=== PATIENT | female | born 1950 | race Native Hawaiian/Other Pacific Islander ===

== ENCOUNTER 2017-04-27 14:07 | Emergency (ER) | payer MEDICAID ==
[2017-04-27 14:08] VITALS: BMI 26.9
[2017-04-27 14:34] VITALS: TEMP 98.4
--- NOTE | 2017-04-27 15:09 | ED PDOC ---
Arrival/HPI - General Historian: Patient - History of Present Illness Time/Duration: 1 week Quality: Tightness Context: Home - General Chief Complaint: Chest Pain Time Seen by Provider: 04/27/17 15:02 - History of Present Illness Narrative History of Present Illness (Text): 04/27/17 15:05 This 66 yo female with pmh htn, psoriasis, presents to this ED c/o intermittent left sides, left arm, and left anterior chest pain x 7 days. Patient described chest pain as "heaviness". Patient stated father dies from aortic aneurysm. Patient is borderline DM, in no medication yet. Patient denies abdominal pain, sob, cough, rash, fever, sick contact, tobacco use, or abnormal gait. Patient noted she return from a month vacation in [facility] x 3 weeks ago. Denies leg swelling, or calf pain. No PMD (Manny Alexis) Past Medical History - Provider Review Nursing Documentation Reviewed: Yes - Cardiac Hx Hypertension: Yes - Pulmonary Hx Respiratory Disorders: No - Neurological Hx Neurological Disorder: No - HEENT Hx HEENT Disorder: Yes (itchy throat x1 yr) - Renal Hx Renal Disorder: No - Endocrine/Metabolic Hx Endocrine Disorders: No - Hematological/Oncological Hx Blood Disorders: No - Integumentary Hx Psoriasis: Yes - Musculoskeletal/Rheumatological Hx Falls: No Hx Gout: Yes (left foot) - Gastrointestinal Hx Gastrointestinal Disorders: Yes (umbilical hernia no sx) - Genitourinary/Gynecological Hx Genitourinary Disorders: No - Psychiatric Hx Psychophysiologic Disorder: No Hx Substance Use: No - Surgical History Hx Cholecystectomy: Yes - Anesthesia Hx Anesthesia: No Hx Anesthesia Reactions: No Hx Malignant Hyperthermia: No Family/Social History - Physician Review Nursing Documentation Reviewed: Yes Family/Social History: No Known Family HX Smoking Status: Never Smoked Hx Alcohol Use: No Hx Substance Use: No Allergies/Home Meds Allergies/Adverse Reactions: Allergies No Known Allergies Allergy (Verified 04/27/17 14:26) Home Medications: Home Meds Medication Instructions Recorded Confirmed Methotrexate 2.5 mg PO QWK 11/16/16 04/27/17 Lisinopril [Zestril] 10 mg PO DAILY 04/27/17 04/27/17 Review of Systems - Review of Systems Constitutional: Normal. absent: Fatigue, Weight Change, Fevers, Night Sweats Eyes: Normal ENT: Normal Respiratory: Normal Cardiovascular: Chest Pain. absent: Palpitations, Edema, Calf Pain, QUINTEROS, Orthopnea, Syncope Gastrointestinal: Normal. absent: Abdominal Pain, Nausea, Vomiting, Anorexia Genitourinary Female: Normal Musculoskeletal: Other (See HPI) Skin: Normal Neurological: Normal Endocrine: Normal Hemo/Lymphatic: Normal Psychiatric: Normal Physical Exam Temperature: Afebrile Blood Pressure: Normal Pulse: Regular Respiratory Rate: Normal Appearance: Positive for: Well-Appearing, Non-Toxic, Comfortable Pain Distress: None Mental Status: Positive for: Alert and Oriented X 3 - Systems Exam Head: Present: Atraumatic, Normocephalic Pupils: Present: PERRL Extroacular Muscles: Present: EOMI Conjunctiva: Present: Normal Ears: Present: Normal, NORMAL TM, Normal Canal. No: Erythema, TM Bulging Mouth: Present: Moist Mucous Membranes Neck: Present: Normal Range of Motion, Trachea Midline. No: Meningeal Signs, MIDLINE TENDERNESS, Paraspinal Tenderness, Bruit Respiratory/Chest: Present: Clear to Auscultation, Good Air Exchange. No: Respiratory Distress, Accessory Muscle Use, Wheezes, Retracting, Rhonchi Cardiovascular: Present: Regular Rate and Rhythm, Normal S1, S2. No: Murmurs Abdomen: Present: Normal Bowel Sounds. No: Tenderness, Distention, Peritoneal Signs, Rebound, Guarding Back: Present: Normal Inspection. No: CVA Tenderness Upper Extremity: Present: Normal Inspection, Normal ROM, NORMAL PULSES, Neurovascularly Intact, Capillary Refill < 2s. No: Cyanosis, Edema Lower Extremity: Present: Normal Inspection, NORMAL PULSES, Normal ROM, Neurovascularly Intact, Capillary Refill < 2 s. No: Edema, CALF TENDERNESS Neurological: Present: GCS=15, CN II-XII Intact, Speech Normal, Motor Func Grossly Intact, Normal Sensory Function, Normal Cerebellar Funct, Gait Normal Skin: Present: Warm, Dry, Normal Color. No: Rashes Psychiatric: Present: Alert, Oriented x 3, Normal Insight, Normal Concentration Vital Signs Temp Pulse Resp BP Pulse Ox 04/27/17 18:45 58 L 18 145/93 H 99 04/27/17 15:57 55 L 18 140/75 99 04/27/17 14:28 98.4 F 64 16 103/71 96 Medical Decision Making Re-evaluation Time: 18:17 Reassessment Condition: Re-examined, Improved - Lab Interpretations I have reviewed the lab results: Yes Interpretation: No clinic. lab abnormalty - EKG Interpretation Interpreted by ED Physician: Yes (Sinus Bradycardia @56 bpm. Normal interval. No ST changes) Type: 12 lead EKG Comparison: No previous EKG avail. ED Course and Treatment: I was available for consultation during PA evaluation. The chart was reviewed by me, and I agree with disposition. The documented history was done by the physician lead software test engineer. The documented physical exam was done by the physician lead software test engineer. The documented procedures were done by the physician lead software test engineer. ( John Paul Rivera) 04/27/17 20:17 I spoke with house physician Haim regarding patient symptoms. He believes b/l infiltrates seen on CT chest, could secondary to Methotrexate. He recommends to start patient on Levaquin, and to have patient f/u pmd, and truck spotter. ( Manny Alexis) - Lab Interpretations Lab Results: 04/27/17 15:05 04/27/17 15:05 Lab Results 04/27/17 15:05: Sodium 139, Potassium 4.5, Chloride 106, Carbon Dioxide 27, Anion Gap 11, BUN 23 H, Creatinine 1.0, Est GFR ( Amer) > 60, Est GFR ( Non-Af Amer) 56, Random Glucose 90, Calcium 9.2, Magnesium 2.0, Total Bilirubin 0.8, AST 23, ALT 29, Alkaline Phosphatase 96, Lactate Dehydrogenase 385, Total Creatine Kinase 26 L, Troponin I < 0.01, NT-Pro-B Natriuret Pep 30.2, Total Protein 7.3, Albumin 3.8, Globulin 3.5, Albumin/Globulin Ratio 1.1 04/27/17 15:05: PT 10.8, INR 1.00, APTT 26.4, D-Dimer, Quantitative 0.57 H 04/27/17 15:05: WBC 7.2 D, RBC 4.90, Hgb 14.8, Hct 44.0, MCV 89.8, MCH 30.2, MCHC 33.6, RDW 14.7 H, Plt Count 227, MPV 9.7, Gran % 53.9, Lymph % (Auto) 30.6 , [place] % (Auto) 12.2 H, Eos % (Auto) 2.7, Baso % (Auto) 0.6, Gran # 3.86, Lymph # 2.2, [place] # 0.9 H, Eos # 0.2, Baso # 0.04 04/27/17 14:54: Urine Color Yellow, Urine Appearance Clear, Urine pH 6.0, Ur Specific [place] 1.020, Urine Protein Negative, Urine Glucose (UA) Negative, Urine Ketones Negative, Urine Blood Trace-intact H, Urine Nitrate Negative, Urine Bilirubin Negative, Urine Urobilinogen 0.2, Ur Leukocyte Esterase Small H , Urine RBC 1 - 3, Urine WBC 2 - 5, Ur Epithelial Cells 4 - 5, Urine Bacteria Few, Urine HCG, Qual Negative - RAD Interpretation Narrative RAD Interpretations (Text): 04/27/17 18:17 ccession No. : [id number] Patient Name / ID : ISSA CARRASCO / [id number] Exam Date : 04/27/2017 17:13:29 ( Approved ) Study Comment : Sex / Age : F / [id number] Creator : Harshad Fry MD Dictator : Harshad Fry MD Electrical Estimator : Engineering Leader : Harshad Fry MD Approver2 : Report Date : 04/27/2017 17:59:24 My Comment : PROCEDURE: CT Chest with contrast (Pulmonary Angiogram) HISTORY: chest pain , elevated D-dimer COMPARISON: None available. TECHNIQUE: Axial computed tomography images were obtained of the chest in the pulmonary arterial phase of enhancement. Coronal and sagittal reformatted images were created and reviewed. Maximum intensity projection (MIP) reconstructed images in the following planes : Coronal projection only. Intravenous contrast dose: 147 cc Omnipaque 350 Mean Hounsfield unit values in the main pulmonary artery: 479.71 Radiation dose: Total exam DLP = 464.24 mGy-cm. This CT exam was performed using one or more of the following dose reduction techniques: Automated exposure control, adjustment of the mA and/or kV according to patient size, and/or use of iterative reconstruction technique. FINDINGS: PULMONARY ARTERIES: Unremarkable. No pulmonary embolism. AORTA: No acute findings. No thoracic aortic aneurysm. LUNGS: Faint multifocal infiltrates involving right upper lobe, right lower lobe, left upper lobe and left lower lobe. PLEURAL SPACES: Unremarkable. No effusion or pneuomothorax. HEART: Unremarkable. No cardiomegaly. No significant pericardial effusion. LYMPH NODES: No lymphadenopathy. BONES, CHEST WALL: Unremarkable. No fracture or destructive lesion OTHER FINDINGS: Unremarkable. IMPRESSION: Unremarkable CT pulmonary angiogram. No pulmonary embolus. Multiple bilateral subsegmental alveolar infiltrates. (Manny Alexis) Radiology Orders: 04/27/17 15:02 CHEST PORTABLE [RAD] Stat 04/27/17 16:13 ANGIO CHEST PE PROTOCOL [CT] Stat - Medication Orders Current Medication Orders: Discontinued Medications Acetaminophen (Tylenol 325mg Tab) 650 mg PO Q6H PRN PRN Reason: Fever >100.4 F Albuterol Sulfate (Albuterol 0.083% Inhal Jennifer (2.5 Mg/3 Ml) Ud) 2.5 mg IH Q2H PRN PRN Reason: Shortness of Breath Aspirin (Aspirin) 325 mg PO STAT STA Stop: 04/27/17 15:03 Last Admin: 04/27/17 15:16 Dose: 325 mg Famotidine (Pepcid) 20 mg PO BID LIZA Levofloxacin/Dextrose (Levaquin 750mg) 750 mg in 150 mls @ 100 mls/hr IVPB STAT STA Stop: 04/27/17 18:24 Last Admin: 04/27/17 18:04 Dose: Ceftriaxone Sodium (Rocephin 1 Gram Ivpb) 1 gm in 100 mls @ 200 mls/hr IVPB STAT STA PRN Reason: Protocol Stop: 04/27/17 18:53 Last Admin: 04/27/17 18:53 Dose: 200 mls/hr Azithromycin (Zithromax 500mg In Ns) 500 mg in 250 mls @ 167 mls/hr IVPB STAT STA PRN Reason: Protocol Stop: 04/27/17 19:54 Last Admin: 04/27/17 19:32 Dose: 167 mls/hr Ibuprofen (Motrin Tab) 600 mg PO Q6H PRN PRN Reason: Pain, Mild (1-3) Iohexol (Omnipaque 350 150 Ml) Confirm Administered Dose 150 ml .ROUTE .STK-MED ONE Stop: 04/27/17 16:55 Lisinopril (Zestril) 10 mg PO DAILY LIZA Methotrexate (Methotrexate) 2.5 mg PO QWK LIZA Disposition/Present on Arrival - Present on Arrival Any Indicators Present on Arrival: No History of DVT/PE: No History of Uncontrolled Diabetes: No Urinary Catheter: No History of Decub. Ulcer: No History Surgical Site Infection Following: None - Disposition Have Diagnosis and Disposition been Completed?: Yes Disposition Time: 20:20 Patient Plan: Discharge - Disposition Diagnosis: Bilateral pneumonia Disposition: HOME/ ROUTINE Patient Problems: Current Active Problems Problem Status Onset Bilateral pneumonia Acute Condition: GOOD Discharge Instructions (ExitCare): Pneumonia (ED) Additional Instructions: Call private doctor for follow up visit in 1-2 days. Call Head Cager for follow up visit in 2-3 days for revaluation. take medication as instructed. Return to emergency if symptoms worsen. Prescriptions: Levofloxacin [Levaquin] 750 mg PO DAILY #5 tablet Referrals: Dawit Keyes MD [Staff Provider] - Follow up with primary [facility] [Outside] - Follow up with primary [facility] [Outside] - Follow up with primary
[2017-04-27 15:15] LABS: ADD MANUAL DIFF? NO
[2017-04-27 15:19] LABS: BASO # 0.04 K/mm3 (0.0-2.0); BASO % 0.6 % (0.0-3.0); EOS # 0.2 (0.0-0.7); EOS % 2.7 % (1.5-5.0); GRAN # 3.86 (1.4-6.5); GRAN % 53.9 % (50.0-68.0); LYMPH # 2.2 (1.2-3.4); LYMPH % 30.6 % (22.0-35.0); MEAN CELL VOLUME 89.8 fL (80.0-105.0); MEAN CORPUSCULAR HEMOGLOBIN 30.2 pg (25.0-35.0); MEAN CORPUSCULAR HGB CONC 33.6 g/dl (31.0-37.0); MEAN PLATELET VOLUME 9.7 fl (7.0-11.0); MONO # 0.9 (0.1-0.6); MONO % 12.2 % (1.0-6.0); PLATELET COUNT 227 10^3/uL (120.0-450.0); RED CELL DISTRIBUTION WIDTH 14.7 % (11.5-14.5); WHITE BLOOD COUNT 7.2 10^3/ul (4.5-11.0)
[2017-04-27 15:28] LABS: ALB/GLOB RATIO 1.1 (1.1-1.8); ALKALINE PHOSPHATASE 96 U/L (38-133); ALT/SGPT 29 U/L (7-56); AST/SGOT 23 U/L (15-39); BILIRUBIN,TOTAL 0.8 mg/dL (0.2-1.3); BLOOD UREA NITROGEN 23 mg/dL (7-21); CALCIUM 9.2 mg/dL (8.4-10.5); CARBON DIOXIDE 27 mmol/L (21-33); CHLORIDE 106 mmol/L (98-107); GFR AFRICAN-AMERICAN > 60; GLUCOSE,RANDOM 90 mg/dL (70-110); PARTIAL THROMBOPLASTIN TIME 26.4 Seconds (23.7-30.8); POTASSIUM 4.5 mmol/L (3.6-5.0); SODIUM 139 mmol/L (132-148); TOTAL PROTEIN 7.3 g/dL (5.8-8.3)
--- NOTE | 2017-04-27 15:29 | RAD ---
HISTORY: Chest pain COMPARISON: 11/18/2016 FINDINGS: LUNGS: The lungs are well inflated and clear. PLEURA: No significant pleural effusion identified, no pneumothorax apparent. CARDIOVASCULAR: Normal. OSSEOUS STRUCTURES: No significant abnormalities. VISUALIZED UPPER ABDOMEN: Normal. OTHER FINDINGS: None. IMPRESSION: No active pulmonary disease.
[2017-04-27 15:40] LABS: TROPONIN I < 0.01 ng/mL
[2017-04-27 15:57] VITALS: RESP 18; O2SAT 99
[2017-04-27 16:03] LABS: D DIMER 0.57 mg/L FEU (0-0.50)
[2017-04-27 16:14] LABS: URINE BILIRUBIN NEGATIVE (NEGATIVE); URINE BLOOD TRACE-INTACT (NEGATIVE); URINE GLUCOSE (UA) NEGATIVE (NEGATIVE); URINE KETONE NEGATIVE (NEGATIVE); URINE LEUKOCYTE ESTERASE SMALL Leu/uL (NEGATIVE); URINE PROTEIN NEGATIVE mg/dL (<30 mg/dL); URINE UROBILINOGEN 0.2 E.U./dL (<1 E.U./dL)
[2017-04-27 16:18] LABS: URINE APPEARANCE CLEAR (CLEAR); URINE COLOR YELLOW (YELLOW)
[2017-04-27 16:29] LABS: URINE BACTERIA FEW (NEG)
[2017-04-27] MEDS: levoFLOXacin 750 mg in D5W 750 MG/150 ML BAG IVPB STA ×2 (18:00→18:04)
--- NOTE | 2017-04-27 18:01 | CT ---
PROCEDURE: CT Chest with contrast (Pulmonary Angiogram) HISTORY: chest pain , elevated D-dimer COMPARISON: None available. TECHNIQUE: Axial computed tomography images were obtained of the chest in the pulmonary arterial phase of enhancement. Coronal and sagittal reformatted images were created and reviewed. Maximum intensity projection (MIP) reconstructed images in the following planes: Coronal projection only. Intravenous contrast dose: 147 cc Omnipaque 350 Mean Hounsfield unit values in the main pulmonary artery: 479.71 Radiation dose: Total exam DLP = 464.24 mGy-cm. This CT exam was performed using one or more of the following dose reduction techniques: Automated exposure control, adjustment of the mA and/or kV according to patient size, and/or use of iterative reconstruction technique. FINDINGS: PULMONARY ARTERIES: Unremarkable. No pulmonary embolism. AORTA: No acute findings. No thoracic aortic aneurysm. LUNGS: Faint multifocal infiltrates involving right upper lobe, right lower lobe, left upper lobe and left lower lobe. PLEURAL SPACES: Unremarkable. No effusion or pneuomothorax. HEART: Unremarkable. No cardiomegaly. No significant pericardial effusion. LYMPH NODES: No lymphadenopathy. BONES, CHEST WALL: Unremarkable. No fracture or destructive lesion OTHER FINDINGS: Unremarkable. IMPRESSION: Unremarkable CT pulmonary angiogram. No pulmonary embolus. Multiple bilateral subsegmental alveolar infiltrates.
[2017-04-27] MEDS ORDERED: cefTRIAXone 1 gm 1 GM/100 ML BAG IVPB STA (18:24)
[2017-04-27] MEDS ORDERED: Azithromycin 500MG/NS 250ml 500 MG/250 ML BAG IVPB STA (18:25)
[2017-04-27] MEDS ORDERED: Albuterol 0.083% Inhal Sol (2.5 mg/3 mL) UD IH PRN (19:45)
--- NOTE | 2017-04-27 20:27 | CP.PCM.CON ---
<RobbinOziel blair - Last Filed: 04/27/17 20:36> History of Present Illness - History of Present Illness History of Present Illness: CC: Chest discomfort for 7d This is a 66yo F w/ a PMhx of Psoriasis and HTN on MTx therapy for the past 20+ years who is coming to the hospital for a 7d history of chest discomfort. The pain is bilateral, non radiating, not associated with diaphoresis or vomiting. It is associated with minor SOB that does not interfere with any daily activities. She denies fevers, PAUL, abdominal pain, N/V/D, dysuria/freq/urg, or lower extremity pain/swelling, denies depression/anxiety. States she recently traveled to the [facility] for [facility] weeks, which she frequents every year. Denies any sick contacts. Received her flu shot this year as well as the pneumococcal vaccine. Denies night sweats, weight loss, or loss of apetite. Allergies: Denies Surgeries: malcom long 2011 Social: denies EtOH use "I had two sips of red wine once and got drunk and hated it", denies cigarettes, or illicit drugs PMhx: Psoriasis, HTN FamHx: Mom and Dad with HTN and DM, no one with cancer, states is up to date on all of her health main exams and all were normal except for cervical dysplasia in 2011 on her last pap Meds: Methotrexate, Losartan Past Patient History - Past Social History Smoking Status: Never Smoked - CARDIAC Hx Hypertension: Yes - PULMONARY Hx Respiratory Disorders: No - NEUROLOGICAL Hx Neurological Disorder: No - HEENT Hx HEENT Problems: Yes (itchy throat x1 yr) - RENAL Hx Chronic Kidney Disease: No - ENDOCRINE/METABOLIC Hx Endocrine Disorders: No - HEMATOLOGICAL/ONCOLOGICAL Hx Blood Disorders: No - INTEGUMENTARY Hx Psoriasis: Yes - MUSCULOSKELETAL/RHEUMATOLOGICAL Hx Falls: No Hx Gout: Yes (left foot) - GASTROINTESTINAL Hx Gastrointestinal Disorders: Yes (umbilical hernia no sx) - GENITOURINARY/GYNECOLOGICAL Hx Genitourinary Disorders: No - PSYCHIATRIC Hx Psychophysiologic Disorder: No Hx Substance Use: No - SURGICAL HISTORY Hx Cholecystectomy: Yes - ANESTHESIA Hx Anesthesia: No Hx Anesthesia Reactions: No Hx Malignant Hyperthermia: No Meds Home Medications: Home Medication List Medication Instructions Recorded Confirmed Type Levofloxacin [Levaquin] 750 mg PO DAILY #5 tablet 06/15/17 Rx Allergies/Adverse Reactions: Allergies Allergy/AdvReac Type Severity Reaction Status Date / Time No Known Allergies Allergy Verified 04/27/17 14:26 Physical Exam - Constitutional Appears: Well, Non-toxic - Head Exam Head Exam: ATRAUMATIC - Eye Exam Eye Exam: EOMI - ENT Exam ENT Exam: Mucous Membranes Moist - Neck Exam Neck exam: Positive for: Full Rom. Negative for: Lymphadenopathy - Respiratory Exam Respiratory Exam: NORMAL BREATHING PATTERN. absent: Accessory Muscle Use, Chest Wall Tenderness, Decreased Breath Sounds, Clear to Auscultation Bilateral (mild crackles at bases), Rales, Rhonchi, Wheezes, Respiratory Distress, Stridor - Cardiovascular Exam Cardiovascular Exam: REGULAR RHYTHM, +S1, +S2 - GI/Abdominal Exam GI & Abdominal Exam: Normal Bowel Sounds, Soft - Rectal Exam Rectal Exam: Deferred - Extremities Exam Extremities exam: Positive for: full ROM. Negative for: calf tenderness - Back Exam Back exam: NORMAL INSPECTION. absent: CVA tenderness (L), CVA tenderness (R) - Neurological Exam Neurological exam: Alert, Oriented x3 - Psychiatric Exam Psychiatric exam: Normal Affect - Skin Skin Exam: Intact, Warm Results - Vital Signs Recent Vital Signs: Last Vital Signs Temp 98.4 F 04/27/17 14:28 Pulse 58 L 04/27/17 18:45 Resp 18 04/27/17 18:45 BP 145/93 H 04/27/17 18:45 Pulse Ox 99 04/27/17 18:45 - Labs Result Diagrams: 04/27/17 15:05 04/27/17 15:05 Labs: Laboratory Results - last 24 hr 04/27/17 04/27/17 04/27/17 14:54 15:05 15:05 WBC 7.2 D RBC 4.90 Hgb 14.8 Hct 44.0 MCV 89.8 MCH 30.2 MCHC 33.6 RDW 14.7 H Plt Count 227 MPV 9.7 Gran % 53.9 Lymph % (Auto) 30.6 [place] % (Auto) 12.2 H Eos % (Auto) 2.7 Baso % (Auto) 0.6 Gran # 3.86 Lymph # 2.2 [place] # 0.9 H Eos # 0.2 Baso # 0.04 PT 10.8 INR 1.00 APTT 26.4 D-Dimer, Quantitative 0.57 H Sodium Potassium Chloride Carbon Dioxide Anion Gap BUN Creatinine Est GFR ( Amer) Est GFR (Non-Af Amer) Random Glucose Calcium Magnesium Total Bilirubin AST ALT Alkaline Phosphatase Lactate Dehydrogenase Total Creatine Kinase Troponin I NT-Pro-B Natriuret Pep Total Protein Albumin Globulin Albumin/Globulin Ratio Urine Color Yellow Urine Appearance Clear Urine pH 6.0 Ur Specific [place] 1.020 Urine Protein Negative Urine Glucose (UA) Negative Urine Ketones Negative Urine Blood Trace-intact H Urine Nitrate Negative Urine Bilirubin Negative Urine Urobilinogen 0.2 Ur Leukocyte Esterase Small H Urine RBC 1 - 3 Urine WBC 2 - 5 Ur Epithelial Cells 4 - 5 Urine Bacteria Few Urine HCG, Qual Negative 04/27/17 15:05 WBC RBC Hgb Hct MCV MCH MCHC RDW Plt Count MPV Gran % Lymph % (Auto) [place] % (Auto) Eos % (Auto) Baso % (Auto) Gran # Lymph # [place] # Eos # Baso # PT INR APTT D-Dimer, Quantitative Sodium 139 Potassium 4.5 Chloride 106 Carbon Dioxide 27 Anion Gap 11 BUN 23 H Creatinine 1.0 Est GFR ( Amer) > 60 Est GFR (Non-Af Amer) 56 Random Glucose 90 Calcium 9.2 Magnesium 2.0 Total Bilirubin 0.8 AST 23 ALT 29 Alkaline Phosphatase 96 Lactate Dehydrogenase 385 Total Creatine Kinase 26 L Troponin I < 0.01 NT-Pro-B Natriuret Pep 30.2 Total Protein 7.3 Albumin 3.8 Globulin 3.5 Albumin/Globulin Ratio 1.1 Urine Color Urine Appearance Urine pH Ur Specific [place] Urine Protein Urine Glucose (UA) Urine Ketones Urine Blood Urine Nitrate Urine Bilirubin Urine Urobilinogen Ur Leukocyte Esterase Urine RBC Urine WBC Ur Epithelial Cells Urine Bacteria Urine HCG, Qual Assessment & Plan - Assessment and Plan (Free Text) Assessment: 66 year old F with Chest Discomfort Chest Discomfort -CTA Chest to r/o PE was negative; D-Dimer midly elevated -showed b/l infiltrates; tough to say whether is from MTx therapy or PNA -advised to take Levoquin 750mg daily for 7d -[id number] Score zero, .6% 30 day mortality -no WBC, no fevers, BP WNL, does not meet any SIRS criteria -advised to f/u with PMD for referal to Associate Teacher for Pulm Func Testing -Troponins are negative, EKG does not show any suspicious findings -in my opinion the patient does not meet criteria for admission to the hospital for pneumonia and can be followed up as an outpatient as she has ample access to her PMD and has good followup Case Discussed and seen with Dr. Haim Alonso PGY1 Night Float <To Whitmore Q - Last Filed: 04/28/17 05:20> Results - Vital Signs Recent Vital Signs: Last Vital Signs Temp 98.4 F 04/27/17 14:28 Pulse 64 04/27/17 20:58 Resp 18 04/27/17 20:58 BP 110/70 04/27/17 21:10 Pulse Ox 99 04/27/17 20:58 - Labs Result Diagrams: 04/27/17 15:05 04/27/17 15:05 Labs: Laboratory Results - last 24 hr 04/27/17 04/27/17 04/27/17 14:54 15:05 15:05 WBC 7.2 D RBC 4.90 Hgb 14.8 Hct 44.0 MCV 89.8 MCH 30.2 MCHC 33.6 RDW 14.7 H Plt Count 227 MPV 9.7 Gran % 53.9 Lymph % (Auto) 30.6 [place] % (Auto) 12.2 H Eos % (Auto) 2.7 Baso % (Auto) 0.6 Gran # 3.86 Lymph # 2.2 [place] # 0.9 H Eos # 0.2 Baso # 0.04 PT 10.8 INR 1.00 APTT 26.4 D-Dimer, Quantitative 0.57 H Sodium Potassium Chloride Carbon Dioxide Anion Gap BUN Creatinine Est GFR ( Amer) Est GFR (Non-Af Amer) Random Glucose Calcium Magnesium Total Bilirubin AST ALT Alkaline Phosphatase Lactate Dehydrogenase Total Creatine Kinase Troponin I NT-Pro-B Natriuret Pep Total Protein Albumin Globulin Albumin/Globulin Ratio Urine Color Yellow Urine Appearance Clear Urine pH 6.0 Ur Specific [place] 1.020 Urine Protein Negative Urine Glucose (UA) Negative Urine Ketones Negative Urine Blood Trace-intact H Urine Nitrate Negative Urine Bilirubin Negative Urine Urobilinogen 0.2 Ur Leukocyte Esterase Small H Urine RBC 1 - 3 Urine WBC 2 - 5 Ur Epithelial Cells 4 - 5 Urine Bacteria Few Urine HCG, Qual Negative 04/27/17 15:05 WBC RBC Hgb Hct MCV MCH MCHC RDW Plt Count MPV Gran % Lymph % (Auto) [place] % (Auto) Eos % (Auto) Baso % (Auto) Gran # Lymph # [place] # Eos # Baso # PT INR APTT D-Dimer, Quantitative Sodium 139 Potassium 4.5 Chloride 106 Carbon Dioxide 27 Anion Gap 11 BUN 23 H Creatinine 1.0 Est GFR ( Amer) > 60 Est GFR (Non-Af Amer) 56 Random Glucose 90 Calcium 9.2 Magnesium 2.0 Total Bilirubin 0.8 AST 23 ALT 29 Alkaline Phosphatase 96 Lactate Dehydrogenase 385 Total Creatine Kinase 26 L Troponin I < 0.01 NT-Pro-B Natriuret Pep 30.2 Total Protein 7.3 Albumin 3.8 Globulin 3.5 Albumin/Globulin Ratio 1.1 Urine Color Urine Appearance Urine pH Ur Specific [place] Urine Protein Urine Glucose (UA) Urine Ketones Urine Blood Urine Nitrate Urine Bilirubin Urine Urobilinogen Ur Leukocyte Esterase Urine RBC Urine WBC Ur Epithelial Cells Urine Bacteria Urine HCG, Qual Attending/Attestation - Attestation I have personally seen and examined this patient.: Yes I have fully participated in the care of the patient.: Yes I have reviewed all pertinent clinical information: Yes Notes (Text): 04/28/17 05:18 I agree with the above note and exam with the following addition: Patient has a HEART SCORE of 1 indicating a low risk of MACE within the next 6 weeks. 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 (patient has been on MTX for over 25 yrs for a history of psoriasis).
[2017-04-27 20:58] VITALS: PULSE 64
[2017-04-27 21:10] VITALS: BP 110/70
--- NOTE | 2017-04-27 22:41 | CARD ---
APPROVED REPORT EKG Measurement Heart [id number] <Conclusion> Sinus bradycardia Otherwise normal ECG
== END 2017-04-27 21:11 | disposition home or self-care (01) ==
LOC: ED 14:07
DX: J18.9 Pneumonia, unspecified organism (principal); I10 Essential (primary) hypertension
CPT/HCPCS: 71010; 71275; 80053; 81001; 82550; 83615; 83735; 83880; 84484; 84703; 85025; 85378; 85610; 85730; 87086; 87181; 93005; 96365; 99285; J0456; J0696; Q9967

== ENCOUNTER 2019-01-28 22:58 | Emergency (ER) | payer MEDICAID, MEDICARE ==
[2019-01-28 23:22] VITALS: BMI 25.8
[2019-01-29] MEDS ORDERED: Sodium Chloride 0.9% 1,000 ML IV ONE (00:01)
[2019-01-29 00:27] LABS: BASO # 0.02 K/mm3 (0.0-2.0); BASO % 0.4 % (0.0-3.0); EOS % 0.2 % (1.5-5.0); HEMOGLOBIN 14.8 g/dL (12.0-16.0); LYMPH # 1.3 (1.2-3.4); MEAN CELL VOLUME 87.1 fl (80.0-105.0); MEAN CORPUSCULAR HEMOGLOBIN 28.9 pg (25.0-35.0); MEAN CORPUSCULAR HGB CONC 33.2 g/dl (31.0-37.0); MONO % 18.8 % (1.0-6.0); RBC 5.12 10^6/uL (3.5-6.1); RED CELL DISTRIBUTION WIDTH 14.3 % (11.5-14.5); WHITE BLOOD COUNT 5.1 10^3/uL (4.5-11.0)
--- NOTE | 2019-01-29 00:29 | ED PDOC ---
Arrival/HPI - General Chief Complaint: Headache Historian: Patient - History of Present Illness Narrative History of Present Illness (Text): 01/29/19 00:32 68 year old female, with a Past medical history of Psoriasis, who presents to the Emergency department complaining of left sided neck pain and mild body aches x 1 day. Patient endorses a mild headache, but denies any fever, chills, shortness of breath, chest pain, abdominal pain, neck stiffness, or any other complaints. Time/Duration: < week Symptom Onset: Gradual Symptom Course: Unchanged Activities at Onset: Light Context: Home Past Medical History - Provider Review Nursing Documentation Reviewed: Yes - Cardiac Hx Hypertension: Yes - Pulmonary Hx Respiratory Disorders: No - Neurological Hx Neurological Disorder: No - HEENT Hx HEENT Disorder: Yes (itchy throat x1 yr) - Renal Hx Renal Disorder: No - Endocrine/Metabolic Hx Endocrine Disorders: No - Hematological/Oncological Hx Blood Disorders: No - Integumentary Hx Psoriasis: Yes - Musculoskeletal/Rheumatological Hx Falls: No Hx Gout: Yes (left foot) - Gastrointestinal Hx Gastrointestinal Disorders: Yes (umbilical hernia no sx) - Genitourinary/Gynecological Hx Genitourinary Disorders: No - Psychiatric Hx Psychophysiologic Disorder: No Hx Substance Use: No - Surgical History Hx Cholecystectomy: Yes - Anesthesia Hx Anesthesia: No Hx Anesthesia Reactions: No Hx Malignant Hyperthermia: No Family/Social History - Physician Review Nursing Documentation Reviewed: Yes Family/Social History: Unknown Family HX Smoking Status: Never Smoked Hx Alcohol Use: No Hx Substance Use: No Allergies/Home Meds Allergies/Adverse Reactions: Allergies No Known Allergies Allergy (Verified 01/28/19 23:23) Home Medications: Home Meds Medication Instructions Recorded Confirmed Methotrexate 2.5 mg PO QWK 11/16/16 01/28/19 Review of Systems - Physician Review All systems were reviewed & negative as marked: Yes - Review of Systems Constitutional: absent: Fevers Respiratory: absent: SOB, Cough Cardiovascular: absent: Chest Pain Gastrointestinal: absent: Abdominal Pain Musculoskeletal: Neck Pain (left sided). absent: Back Pain Neurological: absent: Headache, Dizziness Physical Exam Vital Signs Reviewed: Yes Vital Signs Temp Pulse Resp BP Pulse Ox 01/28/19 23:34 98.9 F 66 18 127/79 95 Temperature: Afebrile Blood Pressure: Normal Pulse: Regular Respiratory Rate: Normal Appearance: Positive for: Well-Appearing, Non-Toxic, Comfortable Pain Distress: None Mental Status: Positive for: Alert and Oriented X 3 - Systems Exam Head: Present: Atraumatic, Normocephalic Pupils: Present: PERRL Extroacular Muscles: Present: EOMI Conjunctiva: Present: Normal Ears: Present: Erythema (left TM erythematous), Fluid (fluid behind left ear drum) Mouth: Present: Moist Mucous Membranes Neck: Present: Normal Range of Motion Respiratory/Chest: Present: Clear to Auscultation, Good Air Exchange. No: Respiratory Distress, Accessory Muscle Use Cardiovascular: Present: Regular Rate and Rhythm, Normal S1, S2. No: Murmurs Abdomen: No: Tenderness, Distention, Peritoneal Signs Back: Present: Normal Inspection Upper Extremity: Present: Normal Inspection. No: Cyanosis, Edema Lower Extremity: Present: Normal Inspection. No: Edema Neurological: Present: GCS=15, Speech Normal Skin: Present: Warm, Dry, Normal Color. No: Rashes Psychiatric: Present: Alert, Oriented x 3, Normal Insight, Normal Concentration Medical Decision Making ED Course and Treatment: 01/29/19 00:27 Impression: 68 year old female presents to the Emergency department complaining of left sided neck pain x 1 day. Differential Diagnosis included but are not limited to: Plan: -- Basic labs -- CT head -- IV fluids -- Toradol -- Influenza A B -- Reassess and disposition Prior Visits: Notes and results from previous visits were reviewed. Progress Notes: CT head reviewed by radiologist, shows: 1. Incidentally noted is small gas in the cavernous sinus, of no clinical consequence. 2. No CT evidence for acute intracranial hemorrhage as clinically questioned. 3. No evidence for acute territorial infarction. 4. No midline shift or mass effect identified. 5. No evidence for displaced calvarial fracture. 6. Little interval change from November 16, 2016. - RAD Interpretation Radiology Orders: 01/29/19 00:02 HEAD W/O CONTRAST [CT] Stat - Medication Orders Current Medication Orders: Sodium Chloride (Sodium Chloride 0.9%) 1,000 mls @ 250 mls/hr IV .Q4H ONE Stop: 01/29/19 04:00 Last Admin: 01/29/19 00:22 Dose: 250 mls/hr eMAR Start Stop Document 01/29/19 00:22 IT (Rec: 01/29/19 00:22 IT [id number]) Intravenous Solution Start Date 01/29/19 Start Time 00:22 Discontinued Medications Ketorolac Tromethamine (Toradol) 30 mg IVP STAT STA Stop: 01/29/19 00:03 Last Admin: 01/29/19 00:22 Dose: 30 mg MAR Pain Assessment Document 01/29/19 00:22 IT (Rec: 01/29/19 00:22 IT [id number]) Pain Reassessment Is this a pain reassessment? No Sleep Is patient sleeping during reassessment? No Presence of Pain Presence of Pain Yes IVP Administration Document 01/29/19 00:22 IT (Rec: 01/29/19 00:22 IT [id number]) Charges for Administration # of IVP Administrations 1 - Scribe Statement The provider has reviewed the documentation as recorded by the Scribe Noemi Cuevas All medical record entries made by the Scribe were at my direction and personally dictated by me. I have reviewed the chart and agree that the record accurately reflects my personal performance of the history, physical exam, medical decision making, and the department course for this patient. I have also personally directed, reviewed, and agree with the discharge instructions and disposition. Disposition/Present on Arrival - Present on Arrival Any Indicators Present on Arrival: No History of DVT/PE: No History of Uncontrolled Diabetes: No Urinary Catheter: No History of Decub. Ulcer: No History Surgical Site Infection Following: None - Disposition Have Diagnosis and Disposition been Completed?: Yes Diagnosis: Otitis media Disposition: HOME/ ROUTINE Disposition Time: 02:05 Condition: GOOD Discharge Instructions (ExitCare): Ear Infections (Otitis Media) (DC) Additional Instructions: DANILO PARSONS, thank you for letting us take care of you today. The emergency medical care you received today was directed at your acute symptoms. If you were prescribed any medication, please fill it and take as directed. It may take several days for your symptoms to resolve. Return to the Emergency Department if your symptoms worsen, do not improve, or if you have any other problems. Please contact your doctor or call one of the physicians/clinics you have been referred to that are listed on the Patient Visit Information form that is included in your discharge packet. Bring any paperwork you were given at discharge with you along with any medications you are taking to your follow up visit. Our treatment cannot replace ongoing medical care by a primary care provider outside of the emergency department. Thank you for allowing the [facility] team to be part of your care today. Follow up with your primary care doctor this week for re-evaluation and further management. Prescriptions: Amoxicillin 875 mg PO BID #14 tablet Ibuprofen [Motrin] 600 mg PO Q6 PRN #20 tab PRN Reason: Pain, Moderate (4-7) Referrals: Whti Valladares DO [Primary Care Provider] - Follow up with primary Forms: [employer] ([place])
[2019-01-29 00:32] LABS: ALB/GLOB RATIO 0.9 (1.1-1.8); ALBUMIN 3.7 g/dL (3.0-4.8); ALT/SGPT 17 U/L (7-56); AST/SGOT 28 U/L (14-36); BLOOD UREA NITROGEN 14 mg/dL (7-21); CALCIUM 8.6 mg/dL (8.4-10.5); GFR NON-AFRICAN AMERICAN > 60
[2019-01-29 02:28] VITALS: BP 122/68; PULSE 63; RESP 17; TEMP 98.5; O2SAT 98
--- NOTE | 2019-01-29 07:56 | CT ---
Date of service: 01/29/2019 PROCEDURE: CT HEAD WITHOUT CONTRAST. HISTORY: r/o ICH COMPARISON: 11/16/2016 CT TECHNIQUE: Axial computed tomography images were obtained through the head/brain without intravenous contrast. Radiation dose: Total exam DLP = 860.99 mGy-cm. This CT exam was performed using one or more of the following dose reduction techniques: Automated exposure control, adjustment of the mA and/or kV according to patient size, and/or use of iterative reconstruction technique. FINDINGS: HEMORRHAGE: No intracranial hemorrhage. BRAIN: No mass effect or edema. No atrophy or chronic microvascular ischemic changes. VENTRICLES: Unremarkable. No hydrocephalus. CALVARIUM: Unremarkable. PARANASAL SINUSES: Unremarkable as visualized. No significant inflammatory changes. Small amount of air can be seen within the cavernous sinuses. This is of doubtful clinical significance. MASTOID AIR CELLS: Unremarkable as visualized. No inflammatory changes. OTHER FINDINGS: The report concurs with the preliminary [facility] report IMPRESSION: No acute intracranial findings
== END 2019-01-29 02:28 | disposition home or self-care (01) ==
LOC: ED 22:58
DX: H66.90 Otitis media, unspecified, unspecified ear (principal); I10 Essential (primary) hypertension
CPT/HCPCS: 70450; 80053; 85025; 87804; 96374; 99285; J1885; J7030